=== PATIENT | male | born 1995 | race African-American/Black ===

== ENCOUNTER 2018-01-13 16:21 | Emergency (ER) | payer OTHER ==
[~2018-01-13] VITALS: Ht 185.4 cm; Wt 104.3 kg
[2018-01-13 17:36] VITALS: BP 182/76
== END 2018-01-13 17:54 | disposition home or self-care (01) ==
LOC: ER 16:21
DX: T20.56XA Corrosion of first degree of forehead and cheek, initial encounter (principal); T21.51XA Corrosion of first degree of chest wall, initial encounter; T65.891A Toxic effect of other specified substances, accidental (unintentional), initial encounter; T32.0 Corrosions involving less than 10% of body surface; Y92.69 Other specified industrial and construction area as the place of occurrence of the external cause
CPT/HCPCS: 99283